=== PATIENT | male | born 1995 | race Two or more races ===

== ENCOUNTER 2024-12-17 13:08 | Emergency (ER) | payer OTHER ==
[~2024-12-17] VITALS: Ht 170.2 cm; Wt 70.3 kg
[2024-12-17] MEDS ORDERED: LIDOCAINE HCL 1% 10ML VIAL PERCUT ONE (15:00)
[2024-12-17] MEDS ORDERED: TETANUS & DIPHTHERIA TOX,ADULT 0.5 ML VIAL IM ONE (15:00)
[2024-12-17] MEDS ORDERED: CEFTRIAXONE SODIUM 1,000 MG VIAL IM ONE (15:00)
[2024-12-17] MEDS ORDERED: CEFTRIAXONE SODIUM 1,000 MG VIAL ONE (15:10)
[2024-12-17] MEDS ORDERED: LIDOCAINE HCL 1% 10ML VIAL ONE (15:10)
[2024-12-17] MEDS ORDERED: DIPHTH,PERTUSS(ACELL),TET VAC 0.5 ML SYRINGE IM ONE (15:11)
[2024-12-17] MEDS ORDERED: DUI500 PO (15:36)
== END 2024-12-17 17:00 | disposition home or self-care (01) ==
LOC: ER 13:09
DX: S61.221A Laceration with foreign body of left index finger without damage to nail, initial encounter (principal); W45.8XXA Other foreign body or object entering through skin, initial encounter; Y93.89 Activity, other specified; Y92.89 Other specified places as the place of occurrence of the external cause
CPT/HCPCS: 12002; 90471; 90714; J1670

== ENCOUNTER 2024-12-28 08:03 | Emergency (ER) | payer OTHER ==
[~2024-12-28] VITALS: Ht 170.2 cm; Wt 68.9 kg
[~2024-12-28 08:03] MED LIST: DUI500 PO
[2024-12-28 08:26] VITALS: BP 119/80; O2SAT 98
== END 2024-12-28 13:13 | disposition home or self-care (01) ==
LOC: ER 08:03
DX: Z48.02 Encounter for removal of sutures (principal)